=== PATIENT | male | born 1995 | race Two or more races ===

== ENCOUNTER 2020-12-20 16:38 | Emergency (ER) | payer SELFPAY ==
[~2020-12-20] VITALS: Ht 157.5 cm; Wt 63.6 kg
[2020-12-20 19:50] VITALS: BP 132/73
[2020-12-20] MEDS ORDERED: FLUORESCEIN OPHTH TEST STRIP. OS ONE (20:00)
[2020-12-20] MEDS ORDERED: TETRACAINE 0.5% OPHTH SOLUTION 4ML BOTTLE. OS ONE (20:00)
[2020-12-20] MEDS ORDERED: TETRACAINE 0.5% OPHTH SOLUTION 4ML BOTTLE. ONE (20:24)
[2020-12-20] MEDS ORDERED: FLUORESCEIN OPHTH TEST STRIP. ONE (20:24)
[2020-12-20] MEDS ORDERED: POLY10DR3 EACHEYE (20:36)
--- NOTE | 2020-12-20 20:37 | PHYS DOC ---
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 Since then he has had left eye pain and redness and discharge. This happened yesterday. He is here today to have his eye checked out. He denies hitting his head, neck pain, back pain, LOC, dizziness, headache, numbness or tingling, extremity pain, focal weakness, abdominal pain, chest pain, shortness of breath, nausea, vomiting, diarrhea. Patient rates his pain a 7 out of 10. He states he had a tetanus shot 2 years ago. Review of Systems: Review of Systems: Constitutional: Denies fever or chills. [] Eyes: Denies change in visual acuity. + Left eye redness , left eye pain, left eye discharge [] HENT: Denies nasal congestion or sore throat. [] Respiratory: Denies cough or shortness of breath. [] Cardiovascular: Denies chest pain or edema. [] GI: Denies abdominal pain, nausea, vomiting, bloody stools or diarrhea. [] : Denies dysuria. [] Musculoskeletal: Denies back pain or joint pain. [] Integument: Denies rash. [] Neurologic: Denies headache, focal weakness or sensory changes. [] Endocrine: Denies polyuria or polydipsia. [] Lymphatic: Denies swollen glands. [] Psychiatric: Denies depression or anxiety. [] Heart Score: C/O Chest Pain: No Risk Factors: Risk Factors: DM, Current or recent (<one month) smoker, HTN, HLP, family history of CAD, obesity. Risk Scores: Score 0 - 3: 2.5% MACE over next 6 weeks - Discharge Home Score 4 - 6: 20.3% MACE over next 6 weeks - Admit for Clinical Observation Score 7 - 10: 72.7% MACE over next 6 weeks - Early Invasive Strategies Current Medications: Current Medications Medications (Trade) Dose Ordered Sig/Steve Start Time Stop Time Status Last Admin Dose Admin Fluorescein Sodium (Ful-Ligia) 1 strip STK-MED ONCE 12/20/20 20:24 12/20/20 20:24 DC Tetracaine HCl (Tetracaine) 40 drop STK-MED ONCE 12/20/20 20:24 12/20/20 20:24 DC Allergies: Allergies: Allergies Coded Allergies Type Severity Reaction Last Updated Verified No Known Drug Allergies 12/20/20 No Physical Exam: PE: Constitutional: Well developed, well nourished, no acute distress, non-toxic appearance. [] HENT: Normocephalic, atraumatic, bilateral external ears normal, oropharynx moist, no oral exudates, nose normal. [] Eyes: PERRLA, EOMI, conjunctiva redness, white discharge. [] Neck: Normal range of motion, no tenderness, supple, no stridor. [] Cardiovascular:Heart rate regular rhythm, no murmur [] Lungs & Thorax: Bilateral breath sounds clear to auscultation [] Abdomen: Bowel sounds normal, soft, no tenderness, no masses, no pulsatile masses. [] Skin: Warm, dry, no erythema, no rash. [] Back: No tenderness, no CVA tenderness. [] Extremities: No tenderness, no cyanosis, no clubbing, ROM intact, no edema. [] Neurologic: Alert and oriented X 3, normal motor function, normal sensory function, no focal deficits noted. [] Psychologic: Affect normal, judgement normal, mood normal. [] EKG: EKG: [] Radiology/Procedures: Radiology/Procedures: [] Course & Med Decision Making: Course & Med Decision Making Pertinent Labs and Imaging studies reviewed. (See chart for details) See HPI. Alert and oriented x4. Ambulatory with steady gait. Speaks in full clear sentences. No focal bony spinal tenderness. Full range of motion of the neck. Moving all extremities. No deformity of any joints. Skin pink warm and dry. Left conjunctiva is reddened with whitish discharge. He states the vision is slightly blurred. Eye Acuity to be done by nurse. Eye Exam Visual accuity: Eye exam: PERRL, Extraocular muscles intact. No signs of ruptured globe. Sclera reddened. Red reflex present. Foreign body: No foreign bodies seen with examination or with lid flip exam. Royce-pen: N/A Fluorescein test: No corneal abrasion. Anesthetic: Tetracaine [] Dragon Disclaimer: Dragon Disclaimer: This electronic medical record was generated, in whole or in part, using a voice recognition dictation system. Departure Departure Impression: Primary Impression: Conjunctivitis Qualified Codes: H10.32 - Unspecified acute conjunctivitis, left eye Disposition: HOME / SELF CARE / HOMELESS Condition: STABLE Referrals: NO PCP (PCP) Bryce VELASQUEZ MD Patient Instructions: Conjunctivitis (Viral and Bacterial) Additional Instructions: Follow-up with an eye doctor of your choosing. Use eyedrops as prescribed. If vision worsens or pain worsens return emergency room. Take ibuprofen or Tylenol for your pain. Scripts Polymyxin B Sulf/Trimethoprim (POLYMYXIN B-TMP EYE DROPS) 10 Ml Drops 1 DROP EACHEYE QID for 7 Days, #10 ML 0 Refills Prov: DANNY BELTRAN APRN 12/20/20 DANNY BELTRAN APRN Dec 20, 2020 20:37
== END 2020-12-20 20:55 | disposition home or self-care (01) ==
LOC: ER 16:38
DX: H10.32 Unspecified acute conjunctivitis, left eye (principal)
CPT/HCPCS: 99283